=== PATIENT | female | born 1995 | race Caucasian/White ===

== ENCOUNTER 2022-10-18 08:16 | Inpatient (IN) ==
[2022-10-18] MEDS ORDERED: SODIUM CHLORIDE 0.9% 1000ML 1,000 ML IV ONE (08:25)
[2022-10-18] MEDS ORDERED: ONDANSETRON INJ 2 MG/ML 2 ML VIAL IV STA (08:25)
[2022-10-18] MEDS ORDERED: MoRPHine SULFATE 4 MG/ML 1 ML CARP\\VIAL IV STA ×2 (08:28→11:14)
--- NOTE | 2022-10-18 08:34 | Emergency Department Note ---
History of Present Illness General Chief Complaint: Illness Stated Complaint: GAL BLADDER ATTACK Time Seen by Provider: 10/18/22 08:22 History of Present Illness Provider Complaint: abdominal pain Onset (ago): 2 day(s) Pain Consistency: constant Location: RUQ Radiation: epigastric Severity: moderate Maximum Pain Intensity: 7 Current Pain Intensity: 7 Quality: + stabbing and + sharp Relieved By: + nothing Exacerbated By: + nothing Context: + possible food poisoning (Occurred after eating Welsh food last night) and + recent surgery/procedure (Colonoscopy 2 days ago); no foreign travel or no recent antibiotic use Associated Symptoms: no nausea, no vomiting, no fever, no chills, no constipation, no dysuria, no hematemesis, no melena, no hematuria, no headache and no chest pain Related Data Patient Confirmed : No Home Medications Medication Instructions Recorded Confirmed Type escitalopram oxalate 10 mg tablet 10 mg PO QPM 10/09/22 10/16/22 History (Lexapro) estradiol 1 tab PO QPM 10/09/22 10/16/22 History mesalamine 1.2 gram tablet,delayed 2.4 g PO QAM 10/09/22 10/16/22 History release (Lialda) prednisone 60 mg PO QAM 10/09/22 10/16/22 History Allergies Allergy/AdvReac Type Severity Reaction Status Date / Time amoxicillin Allergy full body Verified 10/16/22 14:51 hives aripiprazole [From Abilify] Allergy tongue Verified 10/16/22 14:51 swelling Past Med/Surg History Medical History (Updated 10/18/22 @ 14:05 by Mele Kahn MD) Anxiety History of COVID-19 summer 2021, pcr test, not hosp; headache>resolved. Ulcerative colitis Surgical History History of esophagogastroduodenoscopy (EGD) Hx of colonoscopy Nogal teeth extracted Social History Smoking Status: Never smoker Second Hand Exposure: Yes (hx growing up); Do You Dip or Chew Tobacco: No; Hx Alcohol Use: Yes Hx Substance Use: No Preferred Language: Upper Sorbian Communication Ability: Effective Occupational Therapist Assistants Required: No Beliefs That Will Affect Care: None Current Living Situation: Significant Other Feels Safe at Home: Yes Assistive Devices: None Physical Exam Vital Signs: Vital Signs - 24 hr 10/18/22 08:20 10/18/22 08:26 10/18/22 09:46 Temperature 36.6 C Temperature Source Temporal Artery Sc an Pulse Rate 83 85 63 Pulse Rate [Apical ] Pulse Rate from Sp O2 Sensor Pulse Rhythm [Apic al] Pulse Strength [Ap ical] Respiratory Rate 18 16 Respiratory Effort / Characteristics Non-Labored Sponta neous Respiratory Depth Normal Respiratory Patter n Regular Blood Pressure 125/91 Blood Pressure [Ri ght Arm] Blood Pressure Alivia n 102 Blood Pressure Alivia n [Right Arm] Blood Pressure Pos ition Sitting Blood Pressure Pos ition [Right Arm] Pulse Oximetry 99 99 Oxygen Delivery Me thod Room Air Room Air Sepsis Recent Feve r Within 48 Hours No Sepsis New/Unexpla ined Change in Men [place] Status No Sepsis Action Take n by Nursing No Action Required 10/18/22 11:00 10/18/22 08:41 10/18/22 08:41 Temperature Temperature Source Pulse Rate 71 Pulse Rate [Apical ] 67 Pulse Rate from Sp O2 Sensor 70 Pulse Rhythm [Apic al] Regular Pulse Strength [Ap ical] Normal Respiratory Rate 18 12 Respiratory Effort / Characteristics Non-Labored Sponta neous Respiratory Depth Normal Respiratory Patter n Regular Blood Pressure 133/91 Blood Pressure [Ri ght Arm] 140/101 H Blood Pressure Alivia n 96 Blood Pressure Alivia n [Right Arm] 114 Blood Pressure Pos ition Blood Pressure Pos ition [Right Arm] Lying Pulse Oximetry 97 99 Oxygen Delivery Me thod Room Air Sepsis Recent Feve r Within 48 Hours Sepsis New/Unexpla ined Change in Men [place] Status Sepsis Action Take n by Nursing 10/18/22 09:27 10/18/22 09:28 10/18/22 09:28 Temperature Temperature Source Pulse Rate 80 78 Pulse Rate [Apical ] Pulse Rate from Sp O2 Sensor 76 Pulse Rhythm [Apic al] Pulse Strength [Ap ical] Respiratory Rate 17 17 Respiratory Effort / Characteristics Respiratory Depth Respiratory Patter n Blood Pressure 97/64 L Blood Pressure [Ri ght Arm] Blood Pressure Alivia n 71 Blood Pressure Alivia n [Right Arm] Blood Pressure Pos ition Blood Pressure Pos ition [Right Arm] Pulse Oximetry 100 Oxygen Delivery Me thod Sepsis Recent Feve r Within 48 Hours Sepsis New/Unexpla ined Change in Men [place] Status Sepsis Action Take n by Nursing 10/18/22 09:30 10/18/22 09:30 10/18/22 10:00 Temperature Temperature Source Pulse Rate 71 Pulse Rate [Apical ] Pulse Rate from Sp O2 Sensor 69 Pulse Rhythm [Apic al] Pulse Strength [Ap ical] Respiratory Rate 17 Respiratory Effort / Characteristics Respiratory Depth Respiratory Patter n Blood Pressure 111/71 113/72 Blood Pressure [Ri ght Arm] Blood Pressure Alivia n 83 91 Blood Pressure Alivia n [Right Arm] Blood Pressure Pos ition Blood Pressure Pos ition [Right Arm] Pulse Oximetry 100 Oxygen Delivery Me thod Sepsis Recent Feve r Within 48 Hours Sepsis New/Unexpla ined Change in Men [place] Status Sepsis Action Take n by Nursing 10/18/22 10:00 10/18/22 10:30 10/18/22 10:31 Temperature Temperature Source Pulse Rate 65 78 Pulse Rate [Apical ] Pulse Rate from Sp O2 Sensor 70 79 Pulse Rhythm [Apic al] Pulse Strength [Ap ical] Respiratory Rate 13 17 Respiratory Effort / Characteristics Respiratory Depth Respiratory Patter n Blood Pressure 92/66 L Blood Pressure [Ri ght Arm] Blood Pressure Alivia n 76 Blood Pressure Alivia n [Right Arm] Blood Pressure Pos ition Blood Pressure Pos ition [Right Arm] Pulse Oximetry 99 90 Oxygen Delivery Me thod Sepsis Recent Feve r Within 48 Hours Sepsis New/Unexpla ined Change in Men [place] Status Sepsis Action Take n by Nursing 10/18/22 10:31 10/18/22 11:00 10/18/22 11:30 Temperature Temperature Source Pulse Rate 73 96 H Pulse Rate [Apical ] Pulse Rate from Sp O2 Sensor 75 93 H Pulse Rhythm [Apic al] Pulse Strength [Ap ical] Respiratory Rate 18 24 Respiratory Effort / Characteristics Respiratory Depth Respiratory Patter n Blood Pressure 140/101 H Blood Pressure [Ri ght Arm] Blood Pressure Alivia n 124 Blood Pressure Alivia n [Right Arm] Blood Pressure Pos ition Blood Pressure Pos ition [Right Arm] Pulse Oximetry 100 99 Oxygen Delivery Me thod Sepsis Recent Feve r Within 48 Hours Sepsis New/Unexpla ined Change in Men [place] Status Sepsis Action Take n by Nursing 10/18/22 11:30 10/18/22 12:00 10/18/22 12:00 Temperature Temperature Source Pulse Rate 71 66 Pulse Rate [Apical ] Pulse Rate from Sp O2 Sensor 72 66 Pulse Rhythm [Apic al] Pulse Strength [Ap ical] Respiratory Rate 24 15 Respiratory Effort / Characteristics Respiratory Depth Respiratory Patter n Blood Pressure 146/96 H Blood Pressure [Ri ght Arm] Blood Pressure Alivia n 118 Blood Pressure Alivia n [Right Arm] Blood Pressure Pos ition Blood Pressure Pos ition [Right Arm] Pulse Oximetry 97 98 Oxygen Delivery Me thod Sepsis Recent Feve r Within 48 Hours Sepsis New/Unexpla ined Change in Men [place] Status Sepsis Action Take n by Nursing 10/18/22 12:30 10/18/22 12:30 10/18/22 13:51 Temperature Temperature Source Pulse Rate 83 64 Pulse Rate [Apical ] Pulse Rate from Sp O2 Sensor Pulse Rhythm [Apic al] Pulse Strength [Ap ical] Respiratory Rate 14 Respiratory Effort / Characteristics Respiratory Depth Respiratory Patter n Blood Pressure 150/101 H Blood Pressure [Ri ght Arm] Blood Pressure Alivia n 124 Blood Pressure Alivia n [Right Arm] Blood Pressure Pos ition Blood Pressure Pos ition [Right Arm] Pulse Oximetry Oxygen Delivery Me thod Sepsis Recent Feve r Within 48 Hours Sepsis New/Unexpla ined Change in Men [place] Status Sepsis Action Take n by Nursing Physical Exam: Physical Exam GENERAL: She is oriented to person, place, and time. She appears well-developed and well-nourished. She does not appear distressed. HENT: Exam performed. -Head: Normocephalic and atraumatic. -Right Ear: External ear normal. No mastoid erythema -Left Ear: External ear normal. No mastoid erythema -Mouth/Throat: The oropharynx is clear and moist. No trismus in the jaw. No dental abscesses or uvula swelling. No oropharyngeal exudate or tonsillar abscesses. EYES: Conjunctivae and EOM are normal.Right eye exhibits no discharge. Left eye exhibits no discharge. No scleral icterus. NECK: Normal range of motion. Neck supple. No JVD present. No tracheal deviation and normal range of motion present. CV: Normal rate, regular rhythm, normal heart sounds and intact distal pulses. There is no peripheral edema. Palpable radial pulses bue. PULM/CHEST: Effort normal and breath sounds normal. No respiratory distress. No stridor. She has no wheezes. She has no rales. -Chest Wall: She exhibits no tenderness. ABD: The abdomen is soft. Bowel sounds are normal. She has no distension. No mass is present. There is tenderness to palpation of the right upper quadrant and epigastric area. There is no rebound, no guarding, no tenderness at McB urney's point. Rovsig negative MUSC/SKEL: Normal range of motion. There is no peripheral edema, tenderness or deformity. NEURO: Motor and sensation grossly intact. SKIN: Skin is warm and dry. She is not diaphoretic. PSYCH: She has a normal mood and affect. Behavior is normal. Judgment and thought content normal. Course Course 821: The patient was evaluated in room C1. A complete history and physical exam was performed Cardiac monitoring: An order was placed for continuous cardiac monitoring. The monitor shows a rate of 80 with sinus rhythm interpreted by ok 1000: Vital signs stable. Chest x-ray shows no free air under the diaphragm. Will obtain CT of the abdomen pelvis for the cause of the patient's abdominal pain. 1200: Vital signs stable. Labs show white blood cell count of 16.28 platelet count 160. Potassium 3.2. Lipase 332. Imaging shows cholelithiasis with evidence of acute cholecystitis choledocholithiasis with mild intrahepatic biliary ductal dilatation. Discussed case with general surgery on-call Dr. Cummings who after reviewing patient's labs and imaging recommends that the patient be evaluated by GI and admitted to the medicine service with him on consult. [facility] hospitalist team was made aware of the patient for admission. Administered Medications Discontinued Medications Sodium Chloride (Nss 1000ml) 1,000 mls @ 999 mls/hr IV .[id number] ONE Stop: 10/18/22 09:25 Last Infusion: 10/18/22 09:43 Dose: 0 mls/hr Documented By: Admin: 10/18/22 08:42 Dose: 999 mls/hr Documented By: RSL Ceftriaxone Sodium 1,000 mg/ (Dextrose) 50 mls @ 100 mls/hr IV NOW STA Stop: 10/18/22 11:59 Last Infusion: 10/18/22 12:37 Dose: 0 mls/hr Documented By: Admin: 10/18/22 12:03 Dose: 100 mls/hr Documented By: TRUDY Metronidazole (Flagyl) 500 mg in 100 mls @ 100 mls/hr IV NOW STA Stop: 10/18/22 12:29 Last Admin: 10/18/22 13:18 Dose: 100 mls/hr Documented By: KRISTIN Ioversol (Optiray 320 100ml) 94 ml IV ONCE ONE Stop: 10/18/22 10:51 Last Admin: 10/18/22 10:47 Dose: 94 ml Documented By: AREN Morphine Sulfate (Morphine Sulfate 4 Mg/Ml 1 Ml Carp\Vial) 4 mg IV NOW STA Stop: 10/18/22 08:29 Last Admin: 10/18/22 08:42 Dose: 4 mg Documented By: JOSE Morphine Sulfate (Morphine Sulfate 4 Mg/Ml 1 Ml Carp\Vial) 4 mg IV NOW STA Stop: 10/18/22 11:15 Last Admin: 10/18/22 11:20 Dose: 4 mg Documented By: KRISTIN Ondansetron HCl (Ondansetron Inj 2 Mg/Ml 2 Ml Vial) 4 mg IV NOW STA Stop: 10/18/22 08:26 Last Admin: 10/18/22 08:42 Dose: 4 mg Documented By: JOSE Medical Decision Making Medical Records Attestation: I reviewed the patient's medical records. External medical records reviewed. Patient had a colonoscopy done on October 16, 2022, [address] Varela. Patient was found to have congested erythematous friable with contact bleeding granular hemorrhagic mucosa in the rectum rectosigmoid colon and sigmoid colon and descending colon and at the splenic flexure and the transverse colon and at the hepatic flexure and the ascending colon no specimens were collected. Laboratory Data Attestation: I reviewed the patient's lab results. 10/18/22 08:41 10/18/22 08:41 Lab Results 10/18/22 10/18/22 10/18/22 Range/Units 08:41 08:41 08:41 WBC 16.28 H (4.8-10.8) K/ul RBC 4.54 (4.20-5.40) M/uL Hgb 12.5 (12.0-16.0) g/dl Hct 36.7 L (37.0-47.0) % MCV 80.8 (80.0-100.0) fL MCH 27.5 (25.0-34.0) pg MCHC 34.1 (32.0-36.0) g/dL RDW Std Deviation 36.9 (36.4-46.3) fL RDW Coeff of Amos 12.8 (11.5-14.5) % Plt Count 460 H (130-400) K/uL MPV 9.4 (9.4-12.4) fL Immature Gran % (Auto) 0.7 % Neut % (Auto) 63.4 % Lymph % (Auto) 24.1 % [place] % (Auto) 10.7 % Eos % (Auto) 0.7 % Baso % (Auto) 0.4 % Neut # (Auto) 10.33 H (1.40-6.50) K/uL Lymph # (Auto) 3.92 H (1.2-3.4) K/uL [place] # (Auto) 1.74 H (0.11-0.59) K/uL Eos # (Auto) 0.11 (0-0.50) K/uL Baso # (Auto) 0.06 (0-0.2) K/uL Immature Gran # (Auto) 0.12 (0.01-0.20) K/uL Sodium 137 (136-145) mmol/L Potassium 3.2 L (3.5-5.1) mmol/L Chloride 105 (98-107) mmol/L Carbon Dioxide 24 (21-32) mmol/L Anion Gap 8 (3-11) BUN 9 (6-23) mg/dl Creatinine 0.64 (0.6-1.2) mg/dl Est Cr Clr Drug Dosing 126.9 ml/min Est GFR ( Amer) 139.8 ml/min Est GFR (Non-Af Amer) 120.6 ml/min BUN/Creatinine Ratio 14.1 (10-20) Glucose 105 H (70-99(Fasting)) mg/dl Calcium 8.6 (8.6-10.3) mg/dl Total Bilirubin 0.2 (0.2-1.0) mg/dl Direct Bilirubin 0.0 (0-0.2) mg/dl AST 9 L (13-39) U/L ALT 15 (7-52) U/L Alkaline Phosphatase 40 (34-104) U/L Total Protein 6.7 (6.0-8.3) gm/dl Albumin 3.6 (3.4-5.0) gm/dl Lipase 332 H Cancelled (11-82) U/L Urine Color Urine Appearance (Clear) Urine pH (4.5-7.5) Ur Specific [place] (1.000-1.030) Urine Protein (Negative) Urine Glucose (UA) (Negative) Urine Ketones (Negative) Urine Blood (Negative) Urine Nitrite (Negative) Urine Bilirubin (Negative) Urine Urobilinogen (Negative) Ur Leukocyte Esterase (Negative) Urine WBC (Auto) (0-5) /hpf Urine RBC (Auto) (0-4) /hpf U Hyaline Cast (Auto) (0-5) /lpf U Epithel Cells (Auto) (0-5) /lpf Urine Bacteria (Auto) (Negative) Urine Crystals Calcium Oxalate Crystal (None Prsent) Urine Mucus (None Prsent) POC Ur Test (NEG) SARS-CoV-2, RNA, NAAT 10/18/22 10/18/22 10/18/22 Range/Units 08:41 08:41 11:48 WBC (4.8-10.8) K/ul RBC (4.20-5.40) M/uL Hgb (12.0-16.0) g/dl Hct (37.0-47.0) % MCV (80.0-100.0) fL MCH (25.0-34.0) pg MCHC (32.0-36.0) g/dL RDW Std Deviation (36.4-46.3) fL RDW Coeff of Amos (11.5-14.5) % Plt Count (130-400) K/uL MPV (9.4-12.4) fL Immature Gran % (Auto) % Neut % (Auto) % Lymph % (Auto) % [place] % (Auto) % Eos % (Auto) % Baso % (Auto) % Neut # (Auto) (1.40-6.50) K/uL Lymph # (Auto) (1.2-3.4) K/uL [place] # (Auto) (0.11-0.59) K/uL Eos # (Auto) (0-0.50) K/uL Baso # (Auto) (0-0.2) K/uL Immature Gran # (Auto) (0.01-0.20) K/uL Sodium (136-145) mmol/L Potassium (3.5-5.1) mmol/L Chloride (98-107) mmol/L Carbon Dioxide (21-32) mmol/L Anion Gap (3-11) BUN (6-23) mg/dl Creatinine (0.6-1.2) mg/dl Est Cr Clr Drug Dosing ml/min Est GFR ( Amer) ml/min Est GFR (Non-Af Amer) ml/min BUN/Creatinine Ratio (10-20) Glucose (70-99(Fasting)) mg/dl Calcium (8.6-10.3) mg/dl Total Bilirubin (0.2-1.0) mg/dl Direct Bilirubin (0-0.2) mg/dl AST (13-39) U/L ALT (7-52) U/L Alkaline Phosphatase (34-104) U/L Total Protein (6.0-8.3) gm/dl Albumin (3.4-5.0) gm/dl Lipase (11-82) U/L Urine Color Yellow Urine Appearance Cloudy A (Clear) Urine pH 5.5 (4.5-7.5) Ur Specific [place] 1.033 H (1.000-1.030) Urine Protein Trace H (Negative) Urine Glucose (UA) Negative (Negative) Urine Ketones Trace H (Negative) Urine Blood 1+ H (Negative) Urine Nitrite Negative (Negative) Urine Bilirubin Negative (Negative) Urine Urobilinogen Negative (Negative) Ur Leukocyte Esterase Negative (Negative) Urine WBC (Auto) 5-10 H (0-5) /hpf Urine RBC (Auto) 0-4 (0-4) /hpf U Hyaline Cast (Auto) 0 (0-5) /lpf U Epithel Cells (Auto) >30 H (0-5) /lpf Urine Bacteria (Auto) 2+ H (Negative) Urine Crystals Not Reportable Calcium Oxalate Crystal Present A (None Prsent) Urine Mucus Present A (None Prsent) POC Ur Test NEG (NEG) SARS-CoV-2, RNA, NAAT Cancelled Imaging Data Attestation: I personally reviewed and interpreted this imaging study as follows: My Impression: Acute abdominal series: No acute infiltrate no pneumothorax no free air under the diaphragm. Radiologist's Impression: Chest/Abdomen X-ray 10/18/22 08:26 CHEST AND ABDOMEN 2 VIEWS HISTORY: abd pain vomiting colonoscopy 2 days ago COMPARISON: None. FINDINGS: The lungs are clear. The cardiomediastinal silhouette is within normal limits. There is no pneumoperitoneum or pneumatosis. The bowel gas pattern is unremarkable. No evidence for bowel obstruction. No pathologic calcifications. IMPRESSION: No acute cardiopulmonary process. No evidence for bowel obstruction. ACT 112: Negative or not required by law. Electronically signed by: Ghanshyam Arias M.D. 10/18/2022 10:19 AM Abdomen/Pelvis CT 10/18/22 10:03 CT SCAN OF THE ABDOMEN AND PELVIS WITH IV CONTRAST CLINICAL HISTORY: Epigastric and right upper quadrant abdominal pain. Recent colonoscopy. COMPARISON STUDY: Abdominal radiographs performed the same day 10/18/2022. TECHNIQUE: Following the IV administration of 94 cc of Optiray 320, CT scan of the abdomen and pelvis is performed from the lung bases to the proximal femora. Images are reviewed in the axial, sagittal, and coronal planes. IV contrast was administered without complication. A dose lowering technique was utilized adhering to the principles of ALARA. CT DOSE: 930.84 mGy.cm FINDINGS: Lung bases: The heart is normal in size and without pericardial effusion. The lung bases are clear. Liver: The contrast-enhanced liver is normal in size, contour, and attenuation. There is mild central intrahepatic biliary ductal dilatation. The hepatic veins and portal veins are patent. Gallbladder: Gallbladder is distended and contains numerous gallstones. The gallbladder wall is thickened and there is mild pericholecystic trace. Findings are consistent with acute cholecystitis. Choledocholithiasis is suspected. Spleen: Normal in size and attenuation. Pancreas: Unremarkable. Adrenal glands: Unremarkable. Kidneys: The contrast enhanced kidneys are normal in size and without hydronephrosis. The kidneys enhance symmetrically. A circumaortic left renal vein is incidentally noted. Abdominal vasculature: The abdominal aorta is normal in course and caliber. Bowel: There is a long segment of mild colonic wall thickening with mucosal hyperemia and faint pericolonic infiltration. This extends to the distal transverse colon to the rectum, and is greatest in the descending colon. This is consistent with a nonspecific colitis. No bowel obstruction is seen. The appendix is well-visualized and normal. Peritoneum: There is no intraperitoneal free air or abdominal ascites. There is a fat-containing umbilical hernia. Lymphadenopathy: None. Pelvic viscera: The bladder, uterus, and adnexa are normal as visualized. There are bilateral ovarian follicles. Trace free fluid is seen in the cul-de-sac. Skeletal structures: No lytic or blastic lesions are seen. IMPRESSION: 1. Cholelithiasis with evidence of acute cholecystitis. Surgical assessment is advised. 2. Choledocholithiasis is suspected and there is mild intrahepatic biliary ductal dilatation. 3. There is evidence of a nonspecific colitis of the left colon. 4. Tracer fluid in the cul-de-sac is nonspecific and likely within physiologic limits. 5. Additional findings as above. ACT 112: Negative or not required by law. Electronically signed by: Dhaval Cheema M.D. 10/18/2022 11:22 AM [facility] Narrative 0822: The patient was evaluated in room C1. A complete history and physical exam was performed Cardiac monitoring: An order was placed for continuous cardiac monitoring. The monitor shows a rate of 80 with sinus rhythm interpreted by me 1000: Vital signs stable. Chest x-ray shows no free air under the diaphragm. Will obtain CT of the abdomen pelvis for the cause of the patient's abdominal pain. 1200: Vital signs stable. Labs show white blood cell count of 16.28 platelet count 160. Potassium 3.2. Lipase 332. Imaging shows cholelithiasis with evidence of acute cholecystitis choledocholithiasis with mild intrahepatic bilia ry ductal dilatation. Discussed case with general surgery on-call Dr. Cummings who after reviewing patient's labs and imaging recommends that the patient be evaluated by GI and admitted to the medicine service with him on consult. [facility] hospitalist team was made aware of the patient for admission. Impression & Plan Cholecystitis with cholelithiasis, Choledocholithiasis Discharge Plan Visit Data Chief Complaint: Illness Stated Complaint: GAL BLADDER ATTACK ED Provider: Mele Kahn Discharge Problem: Cholecystitis with cholelithiasis, Choledocholithiasis Patient Disposition: Admitted As Inpatient Forms Stand Alone Forms: My [facility] Prescriptions Prescriptions: No Action escitalopram oxalate [Lexapro] 10 mg Tablet 10 mg PO QPM mesalamine [Lialda] 1.2 gram Tablet,Delayed Release (Dr/Ec) 2.4 g PO QAM estradiol 1 tab PO QPM prednisone 60 mg PO QAM Referrals Referrals: PCP,NO [Physician] -
[2022-10-18 09:32] LABS: Appearance Urine Cloudy (Clear); Basophils # (auto) 0.06 K/uL (0-0.2); Basophils % (auto) 0.4 %; Bilirubin Urine Negative (Negative); Blood Urine 1+ (Negative); Color Urine Yellow; Eosinophils # (auto) 0.11 K/uL (0-0.50); Eosinophils % (auto) 0.7 %; Epithelial Cell Urine Auto >30 /lpf (0-5); Glucose Urine UA Negative (Negative); Hematocrit (blood only) 36.7 % (37.0-47.0); Hemoglobin 12.5 g/dl (12.0-16.0); Immature Granulocytes # (auto) 0.12 K/uL (0.01-0.20); Immature Granulocytes % (auto) 0.7 %; Ketones Urine Trace (Negative); Leukocyte Esterase Urine Negative (Negative); Lymphocytes # (auto) 3.92 K/uL (1.2-3.4); Lymphocytes % (auto) 24.1 %; Mean Corpuscular Hemoglobin 27.5 pg (25.0-34.0); Mean Corpuscular Hgb Conc 34.1 g/dL (32.0-36.0); Mean Corpuscular Volume 80.8 fL (80.0-100.0); Mean Platelet Volume 9.4 fL (9.4-12.4); Monocytes # (auto) 1.74 K/uL (0.11-0.59); Monocytes % (auto) 10.7 %; Neutrophils # (auto) 10.33 K/uL (1.40-6.50); Neutrophils % (auto) 63.4 %; Nitrite Urine Negative (Negative); Platelet Count 460 K/uL (130-400); Protein Urine Trace (Negative); RDW Coefficient of Variation 12.8 % (11.5-14.5); RDW Standard Deviation 36.9 fL (36.4-46.3); Red Blood Count 4.54 M/uL (4.20-5.40); Specific Gravity Urine 1.033 (1.000-1.030); Urobilinogen Urine Negative (Negative); White Blood Count 16.28 K/ul (4.8-10.8); pH Urine 5.5 (4.5-7.5)
[2022-10-18 09:46] LABS: Albumin Level 3.6 gm/dl (3.4-5.0); BUN Creatinine Ratio 14.1 (10-20); Bilirubin,Total 0.2 mg/dl (0.2-1.0); Calcium 8.6 mg/dl (8.6-10.3); Creatinine Clr Calc Pharmacy 126.9 ml/min; Est GFR (African American) 139.8 ml/min; Est GFR (Non-African American) 120.6 ml/min; Potassium 3.2 mmol/L (3.5-5.1); Total Protein 6.7 gm/dl (6.0-8.3)
[2022-10-18 10:01] LABS: Bacteria Urine Automated 2+ (Negative); Cast Urine Automated 0 /lpf (0-5)
[2022-10-18 10:04] LABS: RBC Urine Automated 0-4 /hpf (0-4)
[2022-10-18 10:07] LABS: Calcium Oxalate Crystals Urine Present (None Prsent); Mucus Urine Present (None Prsent)
--- NOTE | 2022-10-18 10:20 | XRay Report ---
CHEST AND ABDOMEN 2 VIEWS HISTORY: abd pain vomiting colonoscopy 2 days ago COMPARISON: None. FINDINGS: The lungs are clear. The cardiomediastinal silhouette is within normal limits. There is no pneumoperitoneum or pneumatosis. The bowel gas pattern is unremarkable. No evidence for b owel obstruction. No pathologic calcifications. IMPRESSION: No acute cardiopulmonary process. No evidence for bowel obstruction. ACT 112: Negative or not required by law. Electronically signed by: Ghanshyam Arias M.D. 10/18/2022 10:19 AM
[2022-10-18] MEDS ORDERED: OPTIRAY 320 100ml IV ONE (10:50)
--- NOTE | 2022-10-18 11:25 | CT Scan Report ---
CT SCAN OF THE ABDOMEN AND PELVIS WITH IV CONTRAST CLINICAL HISTORY: Epigastric and right upper quadrant abdominal pain. Recent colonoscopy. COMPARISON STUDY: Abdominal radiographs performed the same day 10/18/2022. TECHNIQUE: Following the IV administration of 94 cc of Optiray 320, CT scan of the abdomen and pelvi s is performed from the lung bases to the proximal femora. Images are reviewed in the axial, sagittal , and coronal planes. IV contrast was administered without complication. A dose lowering technique wa s utilized adhering to the principles of ALARA. CT DOSE: 930.84 mGy.cm FINDINGS: Lung bases: The heart is normal in size and without pericardial effusion. The lung bases are clear. Liver: The contrast-enhanced liver is normal in size, contour, and attenuation. There is mild central intrahepatic biliary ductal dilatation. The hepatic veins and portal veins are patent. Gallbladder: Gallbladder is distended and contains numerous gallstones. The gallbladder wall is thick ened and there is mild pericholecystic trace. Findings are consistent with acute cholecystitis. Keerthi docholithiasis is suspected. Spleen: Normal in size and attenuation. Pancreas: Unremarkable. Adrenal glands: Unremarkable. Kidneys: The contrast enhanced kidneys are normal in size and without hydronephrosis. The kidneys enh ance symmetrically. A circumaortic left renal vein is incidentally noted. Abdominal vasculature: The abdominal aorta is normal in course and caliber. Bowel: There is a long segment of mild colonic wall thickening with mucosal hyperemia and faint peric olonic infiltration. This extends to the distal transverse colon to the rectum, and is greatest in th e descending colon. This is consistent with a nonspecific colitis. No bowel obstruction is seen. The appendix is well-visualized and normal. Peritoneum: There is no intraperitoneal free air or abdominal ascites. There is a fat-containing umbi lical hernia. Lymphadenopathy: None. Pelvic viscera: The bladder, uterus, and adnexa are normal as visualized. There are bilateral ovarian follicles. Trace free fluid is seen in the cul-de-sac. Skeletal structures: No lytic or blastic lesions are seen. IMPRESSION: 1. Cholelithiasis with evidence of acute cholecystitis. Surgical assessment is advised. 2. Choledocholithiasis is suspected and there is mild intrahepatic biliary ductal dilatation. 3. There is evidence of a nonspecific colitis of the left colon. 4. Tracer fluid in the cul-de-sac is nonspecific and likely within physiologic limits. 5. Additional findings as above. ACT 112: Negative or not required by law. Electronically signed by: Dhaval Cheema M.D. 10/18/2022 11:22 AM
[2022-10-18] MEDS ORDERED: cefTRIAXone SODIUM 1,000 MG in DEXTROSE 5% AD-VAN 50 ML IV STA (11:30)
[2022-10-18] MEDS ORDERED: metroNIDAZOLE 500 MG/100 ML BAG IV STA (11:30)
--- NOTE | 2022-10-18 12:23 | Surgery Consultation ---
Date of Consultation October 18, 2022 Assessment & Plan (1) Cholecystitis with cholelithiasis: Currently has an ulcerative colitis flare on prednisone and lialda Complaint of RUQ pain that radiates to midepigastric and back area. Pain started this morning at 4am. Patient reports nausea, vomiting, unsure if she has had a fever but feels sweaty. Temp in ER 97.[address] scan shows Cholelithiasis with acute cholecystitis and choledocholithiasis with suspected mild intrahepatic biliary ductal dilation. LFT: AST 9, ALT 15, Alkaline phosphate 40, lipase 332, bilirubin 0.2 Will plan to admit under hospitalist GI consult to eval Choledocholithiasis pending their input will decide on timing of surgical intervention keep NPO Patient states that last time she ate was 10/17/22 at 2030 and last fluid intake was today at 0730 Supervising Physician Co-Signing Physician Notes Dr. Alford saw the patient in the emergency room. She has right upper quadrant and epigastric pain with radiation to the back Gallstone shows multiple stones and thickening Her common bile duct is dilated on her CT scan and there is suggestion of, choledocholithiasis per the reading Her lipase is mildly elevated At some point she will require laparoscopic cholecystectomy We will await GI thoughts History of Present Illness Reason for Consultation: Patient is a 27 year old female with PMH of ulcerative colitis had a colonoscopy as an outpatient 2 days ago is taking prednisone and lialda currently and has diarrhea from a UC flare. Presents to ER with complaint of RUQ pain that r adiates to midepigastric and back area. Pain started this morning at 4am. Patient reports nausea, vomiting, unsure if she has had a fever but feels sweaty. Patient states that last time she ate was 10/17/22 at 2030 and last fluid intake was today at 0730. Allergies Allergy/AdvReac Type Severity Reaction Status Date / Time amoxicillin Allergy full body Verified 10/16/22 14:51 hives aripiprazole [From Abilify] Allergy tongue Verified 10/16/22 14:51 swelling Home Medications Medication Instructions Recorded Confirmed Type escitalopram oxalate 10 mg tablet 10 mg PO QPM 10/09/22 10/16/22 History (Lexapro) estradiol 1 tab PO QPM 10/09/22 10/16/22 History mesalamine 1.2 gram tablet,delayed 2.4 g PO QAM 10/09/22 10/16/22 History release (Lialda) prednisone 60 mg PO QAM 10/09/22 10/16/22 History Patient History Medical History (Updated 10/18/22 @ 12:51 by Hai Olsen MD) Anxiety History of COVID-19 summer 2021, pcr test, not hosp; headache>resolved. Ulcerative colitis Surgical History History of esophagogastroduodenoscopy (EGD) Hx of colonoscopy [place] teeth extracted Social History Smoking Status: Never smoker Second Hand Exposure: Yes (hx growing up); Do You Dip or Chew Tobacco: No; Hx Alcohol Use: Yes Hx Substance Use: No Preferred Language: Hebrew Communication Ability: Effective Mortgage Servicing Specialist Required: No Beliefs That Will Affect Care: None Current Living Situation: Significant Other Feels Safe at Home: Yes Assistive Devices: None Review of Systems Constitutional: + sweats Gastrointestinal: + abdominal pain (RUQ), + nausea, + vomiting and + diarrhea/loose stools (currently has a flare from UC) Physical Exam Constitutional: cooperative Respiratory: normal respiratory effort; no respiratory distress, no labored breathing and does not use accessory muscles Cardiovascular: Rate/Rhythm: regular rate Gastrointestinal (Abdomen): Percussion/Palpation: + abdomen tender (RUQ pain with palpation) and abdomen soft Results & Data Vital Signs (Past 12 Hours) Vital Signs Temp Pulse Pulse Resp BP BP Pulse Ox 10/18/22 11:00 67 18 140/101 H 97 10/18/22 09:46 63 10/18/22 08:26 85 16 99 10/18/22 08:20 97.9 F 83 18 125/91 99 O2 Del Method 10/18/22 11:00 Room Air 10/18/22 09:46 10/18/22 08:26 Room Air 10/18/22 08:20 Room Air Medications Administered Close Abdomen/Pelvis CT (Signed) Dhaval Cheema - 10/18/22 Chest/Abdomen X-ray (Signed) Ghanshyam Arias - 10/18/22 [facility], [place] [phone] CT Scan Report Patient:MELVIN PINEDA Admit Date:10/18/22 MR#:[id number] Address[address] Acct ID:[id number] Address2:[place] [address] Date:1995 [facility] Zip:[place] [address] Age:27 Location:ED Sex:F Room/Bed: Att Phy: Diagnosis:GAL BLADDER ATTACK Rekha Phy:Nicole Castrejon DO Service Date:10/18/22 [facility] Phy: Interpreting Phy:Dhaval Cheema MDAdmit Phy: Ordering Phy:Mele Kahn MD cc: ~ CT SCAN OF THE ABDOMEN AND PELVIS WITH IV CONTRAST CLINICAL HISTORY: Epigastric and right upper quadrant abdominal pain. Recent colonoscopy. COMPARISON STUDY: Abdominal radiographs performed the same day 10/18/2022. TECHNIQUE: Following the IV administration of 94 cc of Optiray 320, CT scan of the abdomen and pelvis is performed from the lung bases to the proximal femora. Images are reviewed in the axial, sagittal, and coronal planes. IV contrast was administered without complication. A dose lowering technique was utilized adhering to the principles of ALARA. CT DOSE: 930.84 mGy.cm FINDINGS: Lung bases: The heart is normal in size and without pericardial effusion. The lung bases are clear. Liver: The contrast-enhanced liver is normal in size, contour, and attenuation. There is mild central intrahepatic biliary ductal dilatation. The hepatic veins and portal veins are patent. Gallbladder: Gallbladder is distended and contains numerous gallstones. The gallbladder wall is thickened and there is mild pericholecystic trace. Findings are consistent with acute cholecystitis. Choledocholithiasis is suspected. Spleen: Normal in size and attenuation. Pancreas: Unremarkable. Adrenal glands: Unremarkable. Kidneys: The contrast enhanced kidneys are normal in size and without hydronephrosis. The kidneys enhance symmetrically. A circumaortic left renal vein is incidentally noted. Abdominal vasculature: The abdominal aorta is normal in course and caliber. Bowel: There is a long segment of mild colonic wall thickening with mucosal hyperemia and faint pericolonic infiltration. This extends to the distal transverse colon to the rectum, and is greatest in the descending colon. This is consistent with a nonspecific colitis. No bowel obstruction is seen. The appendix is well-visualized and normal. Peritoneum: There is no intraperitoneal free air or abdominal ascites. There is a fat-containing umbilical hernia. Lymphadenopathy: None. Pelvic viscera: The bladder, uterus, and adnexa are normal as visualized. There are bilateral ovarian follicles. Trace free fluid is seen in the cul-de-sac. Skeletal structures: No lytic or blastic lesions are seen. IMPRESSION: 1. Cholelithiasis with evidence of acute cholecystitis. Surgical assessment is advised. 2. Choledocholithiasis is suspected and there is mild intrahepatic biliary ductal dilatation. 3. There is evidence of a nonspecific colitis of the left colon. 4. Tracer fluid in the cul-de-sac is nonspecific and likely within physiologic limits. 5. Additional findings as above. ACT 112: Negative or not required by law. Electronically signed by: Dhaval Cheema M.D. 10/18/2022 11:22 AM Dictated:10/18/22 1117 Transcribed: 10/18/22 1117 PG Care Time/CCT Total # of Minutes Spent Total Time Spent with Patient: Total time spent is greater than 50% in coordination of care (as documented) at patient's floor/unit and/or counseling patient: Coding Level of Care Code 87097 OFFICE CONSULT LVL Diagnoses Cholecystitis with cholelithiasis K80.10
--- NOTE | 2022-10-18 12:50 | History & Physical Report ---
Date of Service October 18, 2022 Assessment & Plan (1) Choledocholithiasis: Plan: Choledocholithiasis with cholecystitis, acute - CT-A/P: 1. Cholelithiasis with evidence of acute cholecystitis. Surgical assessment is advised. 2. Choledocholithiasis is suspected and there is mild intrahepatic biliary ductal dilatation. 3. There is evidence of a nonspecific colitis of the left colon.4. Tracer fluid in the cul-de-sac is nonspecific and likely within physiologic limits. 5. Additional findings as above. Leukocytosis of 16 Renal function normal Potassium 3.2 Lipase 332, no AST/ALT elevation Continue Rocephin/Flagyl Surgery consulted, GI consulted (2) Cholecystitis with cholelithiasis: (3) Ulcerative colitis: Plan: Acute on chronic On prednisone 60 mg daily in addition to her normal mesalamine. Has had a flare about 2 weeks with intermittent bloody/maroon stools Prednisone converted to methylprednisolone while n.p.o., GI consulted Depression/anxiety Chronic. Continue Lexapro 10 mg daily Plan DVT prophylaxis: Low risk SCDs while pending surgical evaluation Diet: N.p.o. Disposition: Medical surgical CODE STATUS: Full code History of Present Illness Primary Care Provider: Nicole Castrejon, Abdominal pain since 4 am this morning +vomiting x1, color of dinner. No blood - History of UC. Having a recent flare with some red/maroon blood in last two weeks; on mesalamine and 60mg of prednisone daily (has been on for 2 weeks) - Sees Jennifer Norwood with [facility] GI - First flare first since initial diagnosis 1 year ago - No white or kael colored stools No history of surgery, hx of colonoscopy with GI No fevers, has been sweats. Denies chills No chest pain or chest pressure. No shortness of breath, but pain in belly worsens with deep breathing CT-A/P: 1. Cholelithiasis with evidence of acute cholecystitis. Surgical assessment is advised. 2. Choledocholithiasis is suspected and there is mild intrahepatic biliary ductal dilatation. 3. There is evidence of a nonspecific colitis of the left colon.4. Tracer fluid in the cul-de-sac is nonspecific and likely within physiologic limits. 5. Additional findings as above. Medical History: Reviewed Medications: Reviewed. Lexapro, estradiol, pred, mesalamine. Took no meds today Surgical History: Reviewed Family history: Reviewed Allergies: Reviewed. Allergi court abstractor amox --> hives, abilify --> tongue swelling Social History: No tobacco use. rare etoh use. Code Status: Full Allergies Allergy/AdvReac Type Severity Reaction Status Date / Time amoxicillin Allergy full body Verified 10/16/22 14:51 hives aripiprazole [From Abilify] Allergy tongue Verified 10/16/22 14:51 swelling Home Medications Medication Instructions Recorded Confirmed Type escitalopram oxalate 10 mg tablet 10 mg PO QPM 10/09/22 10/16/22 History (Lexapro) estradiol 1 tab PO QPM 10/09/22 10/16/22 History mesalamine 1.2 gram tablet,delayed 2.4 g PO QAM 10/09/22 10/16/22 History release (Lialda) prednisone 60 mg PO QAM 10/09/22 10/16/22 History Past Med/Surg History Medical History (Updated 10/18/22 @ 12:51 by Hai Olsen MD) Anxiety History of COVID-19 summer 2021, pcr test, not hosp; headache>resolved. Ulcerative colitis Surgical History History of esophagogastroduodenoscopy (EGD) Hx of colonoscopy [place] teeth extracted Social History Smoking Status: Never smoker Second Hand Exposure: Yes (hx growing up); Do You Dip or Chew Tobacco: No; Hx Alcohol Use: Yes Hx Substance Use: No Preferred Language: Arabic Communication Ability: Effective Drawing Checker Required: No Beliefs That Will Affect Care: None Current Living Situation: Significant Other Feels Safe at Home: Yes Assistive Devices: None Physical Exam Physical Exam: General: A&Ox3. NAD. Cooperative. HEENT: Atraumatic, normocephalic. PERLAA Pulm: CTAB A&P. -wheezes, -rales, -rhonchi. Symmetrical chest rise. No increased work of breathing. No respiratory distress. Cardiac: RRR, -mrg. Radial pulses intact and symmetrical. Abdominal: +RUQ and diffuse abd tenderness, nondistended, soft. BS present. Results & Data Results & Data Vital Signs (Past 12 Hours) Vital Signs Temp Pulse Pulse Resp BP BP Pulse Ox 10/18/22 11:00 67 18 140/101 H 97 10/18/22 09:46 63 10/18/22 08:26 85 16 99 10/18/22 08:20 36.6 C 83 18 125/91 99 O2 Del Method 10/18/22 11:00 Room Air 10/18/22 09:46 10/18/22 08:26 Room Air 10/18/22 08:20 Room Air PG Care Time/CCT Total # of Minutes Spent Total Time Spent with Patient: Total time spent is greater than 50% in coordination of care (as documented) at patient's floor/unit and/or counseling patient: Coding Level of Care Code 45080 INT INP/OBS CARE MIN Diagnoses Choledocholithiasis K80.50 Cholecystitis with cholelithiasis K80.10 Ulcerative colitis K51.90
[2022-10-18] MEDS ORDERED: HYDROmorphone INJ 1 MG/ML SYRINGE IV PRN (14:32)
--- NOTE | 2022-10-18 14:50 | Surgery Progress Note ---
Date of Service October 18, 2022 Assessment & Plan (1) Acute cholecystitis: Plan: After discussion with the GI team I feel it is best to proceed with laparoscopic cholecystectomy and possible intraoperative cholangiogram We will follow her liver functions and symptoms postoperatively Patient is satisfied with this plan Results & Data Vital Signs (Past 12 Hours) Vital Signs Temp Pulse Pulse Resp BP BP Pulse Ox 10/18/22 13:51 64 10/18/22 12:30 83 14 10/18/22 12:30 150/101 H 10/18/22 12:00 66 15 98 10/18/22 12:00 146/96 H 10/18/22 11:30 71 24 97 10/18/22 11:30 140/101 H 10/18/22 11:00 96 H 24 99 10/18/22 10:31 73 18 100 10/18/22 10:31 92/66 L 10/18/22 10:30 78 17 90 10/18/22 10:00 65 13 99 10/18/22 10:00 113/72 10/18/22 09:30 71 17 100 10/18/22 09:30 111/71 10/18/22 09:28 78 17 100 10/18/22 09:28 97/64 L 10/18/22 09:27 80 17 10/18/22 08:41 71 12 99 10/18/22 08:41 133/91 10/18/22 11:00 67 18 140/101 H 97 10/18/22 09:46 63 10/18/22 08:26 85 16 99 10/18/22 08:20 36.6 C 83 18 125/91 99 O2 Del Method 10/18/22 13:51 10/18/22 12:30 10/18/22 12:30 10/18/22 12:00 10/18/22 12:00 10/18/22 11:30 10/18/22 11:30 10/18/22 11:00 10/18/22 10:31 10/18/22 10:31 10/18/22 10:30 10/18/22 10:00 10/18/22 10:00 10/18/22 09:30 10/18/22 09:30 10/18/22 09:28 10/18/22 09:28 10/18/22 09:27 10/18/22 08:41 10/18/22 08:41 10/18/22 11:00 Room Air 10/18/22 09:46 10/18/22 08:26 Room Air 10/18/22 08:20 Room Air PG Care Time/CCT Total # of Minutes Spent Total Time Spent with Patient: Total time spent is greater than 50% in coordination of care (as documented) at patient's floor/unit and/or counseling patient: Coding Level of Care Code None Diagnoses Acute cholecystitis K81.0
[2022-10-18] MEDS ORDERED: BUPIVACAINE 0.5 % 5 MG/1 ML MPF 30ML VIAL ONE (15:05)
[2022-10-18] MEDS ORDERED: MIDAZOLAM HCL 1 MG/ML 2ML VIAL ONE (15:21)
[2022-10-18] MEDS ORDERED: fentaNYL citrate PF 100 MCG/2 ML VIAL ONE ×2 (15:21→16:14)
[2022-10-18] MEDS ORDERED: fentaNYL citrate PF 100 MCG/2 ML VIAL IV PRN (15:26)
[2022-10-18] MEDS ORDERED: ONDANSETRON INJ 2 MG/ML 2 ML VIAL IV PRN ×2 (15:26→18:08)
[2022-10-18] MEDS ORDERED: ePHEDrine sulfate 50 MG/ML AMP IV PRN (15:26)
[2022-10-18] MEDS ORDERED: PROMETHAZINE HCL 6.25 MG in SODIUM CHLORIDE 0.9% 50 ML IV PRN (15:26)
[2022-10-18] MEDS ORDERED: ATROPINE SULFATE 0.1 MG/ML 10ML SYR IV PRN (15:26)
--- NOTE | 2022-10-18 15:26 | Anesthesiology Consultation ---
Date of Service October 18, 2022 Assessment & Plan Chart Review Chart Review: Acceptable Risk for Surgery and Patient NOT seen in Pre Admission Testing Consults Requested none ASA ASA2 Proposed Anesthesia Anesthesia Type: General Risk / Benefits Reviewed With: PT / POA / Parent / Guardian, Accepts Plan and Informed Consent Obtained History Surgery Operation Date: 10/18/22 11:40 Proposed Procedures p Laparoscopic Cholecystectomy - Mariano Cummings MD, FACS Height/Weight Height: 5 ft 4 in Weight: 72.9 kg Allergies Allergy/AdvReac Type Severity Reaction Status Date / Time amoxicillin Allergy full body Verified 10/16/22 14:51 hives aripiprazole [From Abilify] Allergy tongue Verified 10/16/22 14:51 swelling Medications Home Medications Medication Instructions Recorded Confirmed Last Taken escitalopram oxalate 10 mg tablet 10 mg PO QPM 10/09/22 10/18/22 10/17/22 (Lexapro) estradiol 1 tab PO QPM 10/09/22 10/18/22 10/15/22 mesalamine 1.2 gram tablet,delayed 2.4 g PO QAM 10/09/22 10/18/22 10/16/22 07:00 release (Lialda) prednisone 10 mg tablet 0 mg PO DIRECTED 10/18/22 10/18/22 Unknown prednisone 20 mg tablet 60 mg PO DAILY 10/18/22 10/18/22 Unknown Active Medications Generic Name Dose Route Start Last Admin Trade Name Freq PRN Reason Stop Dose Admin Hydromorphone HCl 1 mg 10/18/22 14:32 10/18/22 14:51 Hydromorphone Inj 1 Mg/Ml Syringe IV 11/01/22 14:31 1 mg Q4H PRN Administration Severe Pain (7,8,9,10) on NRS NPO Date Last Intake of Fluids: 10/18/22 Last Intake of Fluids Comment: sips Date Last Intake of Solids: 10/17/22 Time Last Intake of Solids: 20:30 Past Medical History Medical History (Updated 10/18/22 @ 14:49 by Mariano Cummings MD, FACS) Anxiety History of COVID-summer, pcr test, not hosp; headache>resolved. Ulcerative colitis Exercise / Class Metabolic Activity II 4-5 Yardwork/Stairs/Walk up hill Past Surgical History Surgical History History of esophagogastroduodenoscopy (EGD) Hx of colonoscopy [place] teeth extracted Past Anesthesia History No Hx of Anesthesia Complications and No Family Hx of Anesthesia Complications History of PONV No Hx of PONV and No Hx of Motion Sickness Social History Smoking Status: Never smoker Do You Dip or Chew Tobacco: No Hx Alcohol Use: Yes alcohol intake frequency: other Hx Substance Use: No substance use type: does not use Physical Exam Vital Signs Last Vital Signs Temp 36.8 C 10/18/22 15:10 Pulse 82 10/18/22 15:10 Resp 14 10/18/22 15:10 BP 127/93 10/18/22 15:10 Pulse Ox 99 10/18/22 15:10 O2 Del Method Room Air 10/18/22 15:10 Patient has a nose ring that she declines to remove, "it's new and it will close up." I explained that I recommend it be removed to prevent damage to the nose or lip, but explained that if she decides to accept this risk, we will take as much care as possible to avoid damage if we can. ENMT Mouth: no dentition abnormality Thyromental Distance: > or= 3.5 Finger Breadths Mallampati Class: II Neck normal visual inspection Respiratory normal respiratory effort Auscultation: lungs clear to auscultation bilaterally Cardiovascular Rate/Rhythm: regular rate and regular rhythm Psychiatric Orientation: alert Testing Laboratory Results 10/18/22 08:41 10/18/22 08:41 Urine Color Yellow 10/18/22 08:41 Urine Appearance Cloudy (Clear) A 10/18/22 08:41 Urine pH 5.5 (4.5-7.5) 10/18/22 08:41 Ur Specific Alexander 1.033 (1.000-1.030) H 10/18/22 08:41 Urine Protein Trace (Negative) H 10/18/22 08:41 Urine Glucose (UA) Negative (Negative) 10/18/22 08:41 Urine Ketones Trace (Negative) H 10/18/22 08:41 Urine Nitrite Negative (Negative) 10/18/22 08:41 Ur Leukocyte Esterase Negative (Negative) 10/18/22 08:41 Urine WBC (Auto) 5-10 /hpf (0-5) H 10/18/22 08:41 Urine RBC (Auto) 0-4 /hpf (0-4) 10/18/22 08:41 U Hyaline Cast (Auto) 0 /lpf (0-5) 10/18/22 08:41 U Epithel Cells (Auto) >30 /lpf (0-5) H 10/18/22 08:41 Urine Bacteria (Auto) 2+ (Negative) H 10/18/22 08:41 10/18/22 08:41 POC Ur Test NEG
[2022-10-18] MEDS ORDERED: PROPOFOL IV EMULSION 10 MG/ML 20 ML VIAL IV ONE (15:33)
[2022-10-18] MEDS ORDERED: LIDOCAINE 2% 2 ML VIAL/AMP(20MG/ML) INFIL ONE (15:33)
[2022-10-18] MEDS ORDERED: GLYCOPYRROLATE 0.2 MG/ML VIAL ONE (15:33)
[2022-10-18] MEDS ORDERED: SUGAMMADEX SODIUM 200 MG/2 ML VIAL IV ONE (16:15)
[2022-10-18] MEDS ORDERED: ESMOLOL HCL INJ 10 MG/ML 10ML VIAL IV ONE (16:22)
[2022-10-18] MEDS ORDERED: ACETAMINOPHEN 1,000 MG/100 ML VIAL IV ONE (16:53)
--- NOTE | 2022-10-18 16:53 | Post Operative Brief Note ---
PG Immediate Post Op with CF Date of Surgery October 18, 2022 Pre & Post Diagnosis Operation Date: 10/18/22 11:40 Pre-Op Diagnosis: Acute cholecystitis Post-Op Diagnosis: Acute cholecystitis I identified the patient and participated in the time-out.: Yes Procedure Operation Date: 10/18/22 11:40 Actual Procedures p Laparoscopic Cholecystectomy(Not Applicable) - Mariano Cummings MD, FACS Surgeon Mariano Cummings MD, FACS [employer] Electrical Person georgina culver Estimated Blood Loss 10 Findings Consistent with Post-Op Diagnosis Severe acute cholecystitis and a very small cystic duct Specimens Specimen Description: A. Gallbladder and contents
--- NOTE | 2022-10-18 17:02 | Operative Report ---
PG Post Operative Report Pre & Post Diagnosis Operation Date: 10/18/22 11:40 Pre-Op Diagnosis: Acute cholecystitis Post-Op Diagnosis: Acute cholecystitis I identified the patient and participated in the time-out.: Yes Procedure Operation Date: 10/18/22 11:40 Actual Procedures p Laparoscopic Cholecystectomy(Not Applicable) - Mariano Cummings MD, FACS Surgeon Mariano Cummings MD, FACS Tool Checker georgina culver Estimated Blood Loss 10 Findings Consistent with Post-Op Diagnosis Severe acute cholecystitis Specimens Gallbladder Description of Procedure Patient brought in the operating room placed operating table in supine position pneumatic stockings and orogastric tube were placed Her abdomen was prepped and draped in usual fashion Half percent plain Marcaine was used anesthetize all incisions-incision was made in the upper part of the umbilicus carried dissection down to the fascia placing a varies needle-producing pneumoperitoneum 11 mm port placed at this level and then under visualization three 5 mm ports were placed one cephalad and 2 laterally Gallbladder was very distended edematous it was aspirated of bile which was almost clear indicating hydrops Gallbladder was retracted dissection carried out the anali hepatis the cystic duct was very narrow and small I do not feel it was safe to perform chola ngiogram The cystic duct was clipped and transected the cystic artery identified clipped and transected and the gallbladder dissected away from the liver bed in the usual fashion It showed very edematous acute cholecystitis Gallbladder was placed into an Endobag-using a 5 mm camera we were able to remove it through the umbilical site I did have to enlarge the fascial defect because of the massive stones in the gallbladder The fascia at the umbilicus closed using 0 PDS suture, skin reapproximating subcuticular 4-0 Monocryl with Dermabond Patient is transferred recovery room in stable condition I attest to the content of the Intraoperative Record and any orders documented therein. Any exceptions are noted below.
--- NOTE | 2022-10-18 17:53 | Anesthesiology Progress Note ---
Date of Service October 18, 2022 Anesthesia Post Procedure Vital Signs Vital Signs: Temp Pulse Pulse Resp BP BP Pulse Ox 10/18/22 17:35 36.4 C L 81 13 124/97 99 10/18/22 17:25 73 14 119/77 100 10/18/22 17:15 71 15 116/74 100 10/18/22 17:09 36.4 C L 73 13 107/83 100 10/18/22 14:45 72 17 132/89 98 10/18/22 15:10 36.8 C 82 14 127/93 99 10/18/22 13:51 64 10/18/22 12:30 83 14 10/18/22 12:30 150/101 H 10/18/22 12:00 66 15 98 10/18/22 12:00 146/96 H 10/18/22 11:30 71 24 97 10/18/22 11:30 140/101 H 10/18/22 11:00 96 H 24 99 10/18/22 10:31 73 18 100 10/18/22 10:31 92/66 L 10/18/22 10:30 78 17 90 10/18/22 10:00 65 13 99 10/18/22 10:00 113/72 10/18/22 09:30 71 17 100 10/18/22 09:30 111/71 10/18/22 09:28 78 17 100 10/18/22 09:28 97/64 L 10/18/22 09:27 80 17 10/18/22 08:41 71 12 99 10/18/22 08:41 133/91 10/18/22 11:00 67 18 140/101 H 97 10/18/22 09:46 63 10/18/22 08:26 85 16 99 10/18/22 08:20 36.6 C 83 18 125/91 99 O2 Del Method O2 Flow Rate 10/18/22 17:35 Room Air 10/18/22 17:25 Room Air 10/18/22 17:15 Oxymask 5 10/18/22 17:09 Oxymask 5 10/18/22 14:45 Room Air 10/18/22 15:10 Room Air 10/18/22 13:51 10/18/22 12:30 10/18/22 12:30 10/18/22 12:00 10/18/22 12:00 10/18/22 11:30 10/18/22 11:30 10/18/22 11:00 10/18/22 10:31 10/18/22 10:31 10/18/22 10:30 10/18/22 10:00 10/18/22 10:00 10/18/22 09:30 10/18/22 09:30 10/18/22 09:28 10/18/22 09:28 10/18/22 09:27 10/18/22 08:41 10/18/22 08:41 10/18/22 11:00 Room Air 10/18/22 09:46 10/18/22 08:26 Room Air 10/18/22 08:20 Room Air Pain Intensity Right Upper Abdomen: Pain Intensity: 6 Transfer of Care Handoff Completed per policy Notes Mental Status: alert / awake / arousable Patient Amnestic to Procedure: Yes Nausea / Vomiting: adequately controlled Pain: adequately controlled Airway Patency, RR, SpO2: stable & adequate BP & HR: stable & adequate Hydration State: stable & adequate Anesthetic Complications: no major complications apparent
[2022-10-18] MEDS ORDERED: methylPREDNISolone 125 MG/2 ML VIAL IV SCH (18:08)
[2022-10-18] MEDS: PLASMA-LYTE A 1,000 ML IV SCH (19:35)
[2022-10-18] MEDS: methylPREDNISolone 60 MG in SYRINGE 0 ML IV SCH (19:36)
[2022-10-18] MEDS: HYDROmorphone INJ 0.5 MG/0.5 ML SYR IV PRN (19:55)
[2022-10-18] MEDS: metroNIDAZOLE 500 MG/100 ML BAG IV SCH (20:00)
[2022-10-18] MEDS ORDERED: ESCITALOPRAM OXALATE 10 MG TAB PO SCH (21:00)
[2022-10-19] MEDS: HYDROmorphone INJ 0.5 MG/0.5 ML SYR IV PRN ×2 (00:33→06:16)
[2022-10-19] MEDS: PLASMA-LYTE A 1,000 ML IV SCH (04:21)
[2022-10-19] MEDS: metroNIDAZOLE 500 MG/100 ML BAG IV SCH (04:22)
--- NOTE | 2022-10-19 05:18 | Surgery Progress Note ---
Date of Service October 19, 2022 Assessment & Plan (1) Acute cholecystitis: Plan: Status post laparoscopic cholecystectomy on 10/18/2022 (postop day #1) Continue analgesics Continue antiemetics Patient is currently tolerating clear liquids. Consideration be given to advancing diet if she continues to tolerate clear liquids and bowel function returns Continue antibiotics in the form of Rocephin and Flagyl while inpatient Check a.m. labs when available Encourage ambulation and use of incentive spirometer Continue intravenous steroids due to history of ulcerative colitis If patient remains hospitalized consideration can be given to adding Lovenox for DVT prevention Admission and Anticipated Discharge Date Admission Date: October 18, 2022 Supervising Physician Co-Signing Physician Notes Dr. Cummingspatient seems to be doing very well and wants to go home Liver function studies are essentially normal this a.m. We will discharge patient home with pain medication and follow-up in the office Subjective Patient is resting comfortably in bed. Since her surgery she denies having any bowel movement or flatus but has not had any nausea or vomiting. She is tolerating clear liquids without exacerbation of abdominal pain. She denies any shortness of breath. Physical Exam Gastrointestinal (Abdomen): Abdomen is soft and nonrigid. It is nondistended. Bowel sounds are present. Laparoscopic surgical incisions are clean, dry, and intact. Patient has appropriate tenderness near surgical incisions. Results & Data Vital Signs (Past 12 Hours) Vital Signs Temp Pulse Pulse Resp BP Pulse Ox O2 Del Method 10/19/22 03:47 37.0 C 75 16 129/81 97 Room Air 10/19/22 00:26 37.0 C 99 H 16 153/90 H 97 Room Air 10/18/22 20:32 37.0 C 83 16 129/80 98 Room Air 10/18/22 19:33 36.8 C 63 16 131/84 99 Room Air 10/18/22 18:30 36.5 C 81 125/87 100 Room Air 10/18/22 18:00 36.6 C 93 H 135/95 99 Room Air 10/18/22 17:35 36.4 C L 81 13 124/97 99 Room Air 10/18/22 17:25 73 14 119/77 100 Room Air PG Care Time/CCT Total # of Minutes Spent Total Time Spent with Patient: Total time spent is greater than 50% in coordination of care (as documented) at patient's floor/unit and/or counseling patient: Coding Level of Care Code None Diagnoses Acute cholecystitis K81.0
[2022-10-19 06:14] LABS: Basophils # (auto) 0.01 K/uL (0-0.2); Basophils % (auto) 0.1 %; Hematocrit (blood only) 34.5 % (37.0-47.0); Immature Granulocytes # (auto) 0.08 K/uL (0.01-0.20); Immature Granulocytes % (auto) 0.8 %; Lymphocytes # (auto) 1.58 K/uL (1.2-3.4); Lymphocytes % (auto) 14.9 %; Mean Corpuscular Hemoglobin 27.5 pg (25.0-34.0); Mean Corpuscular Hgb Conc 34.8 g/dL (32.0-36.0); Mean Corpuscular Volume 79.1 fL (80.0-100.0); Mean Platelet Volume 9.3 fL (9.4-12.4); Monocytes # (auto) 0.91 K/uL (0.11-0.59); Monocytes % (auto) 8.6 %; Neutrophils # (auto) 8.05 K/uL (1.40-6.50); Neutrophils % (auto) 75.6 %; Platelet Count 453 K/uL (130-400); RDW Coefficient of Variation 12.8 % (11.5-14.5); RDW Standard Deviation 36.3 fL (36.4-46.3); Red Blood Count 4.36 M/uL (4.20-5.40); White Blood Count 10.63 K/ul (4.8-10.8)
[2022-10-19 06:41] LABS: Albumin Globulin Ratio 1.1 (0.9-2); Albumin Level 3.3 gm/dl (3.4-5.0); BUN Creatinine Ratio 7.3 (10-20); Bilirubin Direct 0.1 mg/dl (0-0.2); Bilirubin,Total 0.3 mg/dl (0.2-1.0); Calcium 7.9 mg/dl (8.6-10.3); Creatinine Clr Calc Pharmacy 147.7 ml/min; Est GFR (African American) 146.9 ml/min; Est GFR (Non-African American) 126.8 ml/min; Potassium 3.7 mmol/L (3.5-5.1); Total Protein 6.3 gm/dl (6.0-8.3)
[2022-10-19 07:16] LABS: Basophils # (auto) 0.01 K/uL (0-0.2); Basophils % (auto) 0.1 %; Hematocrit (blood only) 33.9 % (37.0-47.0); Hemoglobin 11.6 g/dl (12.0-16.0); Immature Granulocytes # (auto) 0.11 K/uL (0.01-0.20); Immature Granulocytes % (auto) 0.9 %; Lymphocytes # (auto) 1.75 K/uL (1.2-3.4); Mean Corpuscular Hemoglobin 27.4 pg (25.0-34.0); Mean Corpuscular Hgb Conc 34.2 g/dL (32.0-36.0); Mean Corpuscular Volume 80.1 fL (80.0-100.0); Mean Platelet Volume 9.1 fL (9.4-12.4); Monocytes # (auto) 1.14 K/uL (0.11-0.59); Monocytes % (auto) 9.8 %; Neutrophils # (auto) 8.63 K/uL (1.40-6.50); Neutrophils % (auto) 74.2 %; Platelet Count 449 K/uL (130-400); RDW Coefficient of Variation 12.8 % (11.5-14.5); RDW Standard Deviation 36.5 fL (36.4-46.3); Red Blood Count 4.23 M/uL (4.20-5.40); White Blood Count 11.64 K/ul (4.8-10.8)
[2022-10-19] MEDS: methylPREDNISolone 60 MG in SYRINGE 0 ML IV SCH (08:04)
--- NOTE | 2022-10-19 08:45 | Discharge Summary ---
Date of Service October 19, 2022 Admission HPI Per Admitting Provider Abdominal pain since 4 am this morning +vomiting x1, color of dinner. No blood - History of UC. Having a recent flare with some red/maroon blood in last two weeks; on mesalamine and 60mg of prednisone daily (has been on for 2 weeks) - Sees Jennifer Norwood with [facility] - First flare first since initial diagnosis 1 year ago - No white or kael colored stools No history of surgery, hx of colonoscopy with GI No fevers, has been sweats. Denies chills No chest pain or chest pressure. No shortness of breath, but pain in belly worsens with deep breathing CT-A/P: 1. Cholelithiasis with evidence of acute cholecystitis. Surgical assessment is advised. 2. Choledocholithiasis is suspected and there is mild intrahepatic biliary ductal dilatation. 3. There is evidence of a nonspecific colitis of the left colon.4. Tracer fluid in the cul-de-sac is nonspecific and likely within physiologic limits. 5. Additional findings as above. Medical History: Reviewed Medications: Reviewed. Lexapro, estradiol, pred, mesalamine. Took no meds today Surgical History: Reviewed Family history: Reviewed Allergies: Reviewed. 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 rare etoh use. Code Status: Full Admission Exam Per Admitting Provider General: A&Ox3. NAD. Cooperative. HEENT: Atraumatic, normocephalic. PERLAA Pulm: CTAB A&P. -wheezes, -rales, -rhonchi. Symmetrical chest rise. No increased work of breathing. No respiratory distress. Cardiac: RRR, -mrg. Radial pulses intact and symmetrical. Abdominal: +RUQ and diffuse abd tenderness, nondistended, soft. BS present. Principal Diagnosis cholecystitis w/ choledocholithiasis s/p cholecystectomy, UC flare Discharge Exam Constitutional: well appearing, no acute distress HEENT: normocephalic, no conjunctival injection CV: regular rhythm, regular rate, no murmur, no LE edema Respiratory: Clear to auscultation bilaterally. No rhonchi, wheezes, or crackles. No increased work of breathing GI: soft, nondistended, minimally tender, positive bowel sounds MSK: no gross deformities noted Skin: warm, dry, no rashes. Surgical scars healing well, appear uninfected Neuro: alert, oriented, no FND noted Discharge Data Allergies Allergy/AdvReac Type Severity Reaction Status Date / Time amoxicillin Allergy full body Verified 10/16/22 14:51 hives aripiprazole [From Abilify] Allergy tongue Verified 10/16/22 14:51 swelling Consultations 10/18/22 12:03 Consult General Surgery Stat ED Decision to Admit Stat 10/18/22 18:08 Consult Gastroenterology Routine Procedures Performed Operation Date: 10/18/22 11:40 Actual Procedures p Laparoscopic Cholecystectomy(Not Applicable) - Mariano Cummings MD, FACS Ordered Studies 10/18/22 10:03 CT abd pelvis IV con only Stat IMPRESSION: 1. Cholelithiasis with evidence of acute cholecystitis. Surgical assessment is advised. 2. Choledocholithiasis is suspected and there is mild intrahepatic biliary ductal dilatation. 3. There is evidence of a nonspecific colitis of the left colon. 4. Tracer fluid in the cul-de-sac is nonspecific and likely within physiologic limits. 5. Additional findings as above. Hospital Course (1) Choledocholithiasis: Pt is a 27 yo female with PMH of UC presenting to the hospital due to RUQ pain w/ nausea and vomiting found to have cholecystitis and choledocholithiasis. Choledocholithiasis with acute cholecystitis - noted on CTAP; leukocytosis with left shift - LFTs WNL, lipase elevated at 332 - cholecystectomy performed 10/18 w/o immediate complications - d/c home with 5 days of flagyl and cefdinir for infection prevention (especially considering immunocompromised state with steroid therapy as below) - f/u with surgery Acute flare on chronic ulcerative colitis - began ~2 weeks ago; on prednisone 60 mg daily in addition to her normal mesalamine per her outpatient GI - since starting steroid therapy, down to ~2 stools per day with minimal blood - pt states she has 1 more full week of 60 mg daily then she will start tapering - pt has steroids with taper at home; continue regimen per GI - f/u with GI as scheduled Depression/anxiety - continue Lexapro 10 mg daily DVT prophylaxis: Low risk, SCDs Diet: regular Dispo: med/surg Code: Full (2) Acute cholecystitis: (3) Ulcerative colitis: (4) S/P laparoscopic cholecystectomy: Total Time Total Time Spent Total Time Spent (In Minutes): <30 Discharge Plan Discharge Items Patient Disposition: Home - Self-Care Reason For Visit: [place], UC FLARE Discharge Diagnosis: laparoscopic cholecystectomy Activity: Per Instructions section Activity Comment: light activity for 3-4 weeks Lifting: No more than 10 pounds Bathing Comment: may shower; no soaking in tubs/pools x2 weeks Sexual Activity: When tolerated Exercise/Sports: Wait until after follow-up appointment Exercise Comment: wait 3-4 weeks Driving/Machine Use: Resume 3 days after discharge Weightbearing Comment: no driving while taking narcotics for pain Non-emergency contact: Primary Care Provider and Surgeon Call non-emergency contact if: you have any medication questions, your pain is not controlled, you have a fever, your temperature is above 101.5, your wound has increased redness, your wound has increased drainage and your wound pain has increased Follow-up/Referrals: Mariano Cummings MD, FACS [Physician] - Nicole Castrejon DO [Primary Care Provider] - Diet: Regular Addtl Attending Provider Instructions: You should continue the antibiotics metronidazole three times per day and cefdinir twice per day for the next 5 days to prevent infection. SPECIAL CARE INSTRUCTIONS: * May use ibuprofen for pain as tolerated. * Expect some swelling and bruising. Call your doctor if: * Temperature above 101 degrees * Pain not relieved by pain medicine ordered * There is increased drainage or redness from any incision * You have any unanswered questions or concerns [phone]. FOLLOW UP VISIT: If not already scheduled, please call the office for a follow-up visit. OFFICE PHONE NUMBER: Dr. Cummings Office Pending Studies at Discharge: Yes Studies:: surgical pathology Stand-Alone Forms: My [employer], Smoking Cessation Medications and DC Order Prescriptions: New hydrocodone-acetaminophen 5-325 mg tablet 1 tab PO Q4H PRN (Reason: pain) Qty: 30 0RF Rx Instructions: For severe pain you may take 2 tablets but not more than 6 tablets in a single day cefdinir 300 mg capsule 300 mg PO BID 5 Days Qty: 10 0RF metronidazole 500 mg tablet 500 mg PO Q8H 5 Days Qty: 15 0RF Continued escitalopram oxalate [Lexapro] 10 mg Tablet 10 mg PO QPM mesalamine [Lialda] 1.2 gram Tablet,Delayed Release (Dr/Ec) 2.4 g PO QAM estradiol 1 tab PO QPM Rx Instructions: .03 mg per pt prednisone 10 mg tablet 0 mg PO DIRECTED Rx Instructions: Hasn't picked up yet. Starts next week prednisone 20 mg tablet 60 mg PO DAILY Discharge Orders: Discharge Order (Routine); Ordered 10/19/22 Ordered By: Mariano Cummings Admission Data Admit Date/Time: 10/18/22 16:54 Attending Provider: Hesham Haywood Admit Provider: Mariano Cummings Primary Care Provider: Nicole Castrejon Other Providers: Mariano Cummings ; Hai Olsen Other Interventions: Discharge Summary Assessment (RN) Last Done: 10/19/22 08:15 Supervising Physician Co-Signing Physician Notes chart reviewed, case d/w Dr Almaraz. discharge ordered by surgery this AM - went to see pt this AM but was gone before i was able to actually see her. was seen by resident physician, however. cholecystitis - stable for home, post op, safe for outpt f/u. since immune compromised - short course of post op abx. otehrwise as above, and as per surgery. outpt f/u w surgery, GI, PCP Resident Activity Tracking Resident Involvement: Resident Care Provided Care Provided: Adult Hospital Medicine
[2022-10-19] MEDS ORDERED: cefTRIAXone SODIUM 2,000 MG in DEXTROSE 5% 50 ML IV SCH (12:00)
--- NOTE | 2022-10-19 16:50 | Billing Data ---
Date of Service October 19, 2022 Coding Level of Care Code 97228 IN/OBS DISCH 30 MIN/LESS
== END 2022-10-19 09:15 | disposition home or self-care (01) | DRG 418 ==
LOC: ED 08:16 → 3W 14:45 → SUATTDRO 16:54